=== PATIENT | male | born 1965 | race Hispanic/Latino ===

== ENCOUNTER 2017-12-31 18:01 | Emergency (ER) | payer OTHER ==
[2017-12-31 19:01] LABS: BASOPHILS % (AUTO) 0.1 % (0.0-5.0); EOSINOPHILS % (AUTO) 0.2 % (0.0-8.0); HEMATOCRIT 44.8 % (42-54); LYMPHOCYTES % (AUTO) 3.8 % (21.0-51.0); MEAN CORPUSCULAR HEMOGLOBIN 30.6 pg (27.0-33.0); MEAN CORPUSCULAR HGB CONC 34.9 g/dL (32.0-36.0); MEAN CORPUSCULAR VOLUME 87.8 fL (79-99); MONOCYTES % (AUTO) 0.3 % (3.0-13.0); NEUTROPHILS % (AUTO) 95.6 % (40.0-77.0); NUCLEATED RED BLOOD CELLS 0.1 % (0.0-0.19); PLATELET COUNT (AUTO) 312 K/uL (130-400); RED CELL DISTRIBUTION WIDTH 13.6 % (11.0-15.5); WHITE BLOOD COUNT (AUTO) 6.7 K/uL (4.8-10.8)
[2017-12-31 19:05] LABS: CREATININE 1.1 mg/dL (0.5-1.5); POTASSIUM 3.5 mmol/L (3.5-5.1)
[2017-12-31] MEDS ORDERED: ONDANSETRON HCL 4 MG/2 ML VIAL ONE (19:11)
[2017-12-31] MEDS ORDERED: SODIUM CHLORIDE 0.9% 1000ML 2,000 ML IV ONE (19:11)
[2017-12-31 19:12] LABS: ALBUMIN 4.1 g/dL (3.5-5.0); BILIRUBIN,TOTAL 0.8 mg/dL (0.2-1.0); TOTAL PROTEIN, SERUM 8.2 g/dL (6.0-8.3)
[2017-12-31] MEDS ORDERED: ACETAMINOPHEN EXTRA STRENGTH 500 MG TABLET ONE (19:12)
[2017-12-31 19:37] LABS: RAPID GROUP A STREP NEGATIVE (NEGATIVE)
[2017-12-31] MEDS ORDERED: IOHEXOL 350 MG/ML 100ML INFUS..BTL IV ONE (19:37)
[2017-12-31] MEDS ORDERED: CEFTRIAXONE SODIUM 1 GM ONE (20:06)
[2017-12-31] MEDS ORDERED: IBUPROFEN 400 MG TABLET ONE (21:09)
[2017-12-31] MEDS ORDERED: IBUPROFEN 200 MG TAB ONE (21:10)
[2017-12-31 21:33] LABS: APPEARANCE,URINE Clear (CLEAR); BILIRUBIN,URINE Negative (NEGATIVE); COLOR,URINE Yellow (YELLOW); GLUCOSE, URINE (UA) Negative (NEGATIVE); KETONES,URINE >=80 mg/dL (NEGATIVE); LEUKOCYTE ESTERASE ,URINE Negative (NEGATIVE); NITRATE,URINE Negative (NEGATIVE); OCCULT BLOOD,URINE Negative (NEGATIVE); PROTEIN,URINE Negative (NEGATIVE); UROBILINOGEN,URINE 0.2 mg/dL (0.2-1.0)
[2017-12-31] MEDS ORDERED: SODIUM CHLORIDE 0.9% 1000ML 1,000 ML IV ONE (21:39)
== END 2017-12-31 22:57 | disposition home or self-care (01) ==
LOC: EDH 18:01
DX: K52.9 Noninfective gastroenteritis and colitis, unspecified (principal); E86.0 Dehydration; R42 Dizziness and giddiness; I10 Essential (primary) hypertension
CPT/HCPCS: 36415; 74177; 80053; 81003; 83605 ×2; 83690; 85025; 87040 ×2; 87077; 87186; 87804 ×2; 87880; 93005; 96361; 96374; 96375; 99285; J0696; J2405; J7030 ×2; Q9967